=== PATIENT | female | born 1960 | race Caucasian/White ===

== ENCOUNTER → 2018-04-10 19:09 | Outpatient (CLI) | payer OTHER, SELFPAY | PROVIDERS: Family Provider Physician Assistant; PCP Physician Assistant; Visit Provider Physician Assistant | DX: B37.2 Candidiasis of skin and nail (principal) | CPT/HCPCS: 87070; 87075; 87077; 87147; 87186; 87205 ==

== ENCOUNTER → 2018-05-07 18:12 | Outpatient (REF) | payer OTHER, SELFPAY | LOC: LAB 18:12 | PROVIDERS: Family Provider Physician Assistant; PCP Physician Assistant; Visit Provider Physician Assistant | DX: D48.5 Neoplasm of uncertain behavior of skin (principal); L81.4 Other melanin hyperpigmentation; Z71.89 Other specified counseling; L08.9 Local infection of the skin and subcutaneous tissue, unspecified | CPT/HCPCS: 87070; 87075; 87077; 87147; 87186; 87205 ==

== ENCOUNTER → 2018-05-14 14:03 | Outpatient (CLI) | payer OTHER, SELFPAY ==
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
== END ==
PROVIDERS: Family Provider Physician Assistant; PCP Physician Assistant; Visit Provider Internal Medicine
DX: S21.002D Unspecified open wound of left breast, subsequent encounter (principal); S21.001D Unspecified open wound of right breast, subsequent encounter; B37.9 Candidiasis, unspecified
CPT/HCPCS: 11042; 87070; 87075; 87077; 87147; 87186; 87205; 99214

== ENCOUNTER → 2018-05-22 08:57 | Outpatient (CLI) | payer OTHER, SELFPAY ==
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
== END ==
PROVIDERS: Family Provider Physician Assistant; PCP Physician Assistant; Visit Provider Internal Medicine
DX: S21.002D Unspecified open wound of left breast, subsequent encounter (principal); S21.001D Unspecified open wound of right breast, subsequent encounter; B95.4 Other streptococcus as the cause of diseases classified elsewhere; A49.01 Methicillin susceptible Staphylococcus aureus infection, unspecified site; L92.9 Granulomatous disorder of the skin and subcutaneous tissue, unspecified
CPT/HCPCS: 17250

== ENCOUNTER → 2018-05-29 08:50 | Outpatient (CLI) | payer OTHER, SELFPAY | PROVIDERS: Family Provider Physician Assistant; PCP Physician Assistant; Visit Provider Internal Medicine | DX: T81.31XD Disruption of external operation (surgical) wound, not elsewhere classified, subsequent encounter (principal); S21.002D Unspecified open wound of left breast, subsequent encounter; S21.001D Unspecified open wound of right breast, subsequent encounter; B37.9 Candidiasis, unspecified; B95.7 Other staphylococcus as the cause of diseases classified elsewhere; B95.4 Other streptococcus as the cause of diseases classified elsewhere | CPT/HCPCS: 99214 ==

== ENCOUNTER → 2018-06-05 08:34 | Outpatient (CLI) | payer OTHER, SELFPAY | PROVIDERS: Family Provider Physician Assistant; PCP Physician Assistant; Visit Provider Internal Medicine | DX: S21.002D Unspecified open wound of left breast, subsequent encounter (principal); S21.001D Unspecified open wound of right breast, subsequent encounter; B37.9 Candidiasis, unspecified; L92.9 Granulomatous disorder of the skin and subcutaneous tissue, unspecified | CPT/HCPCS: 17250; 87070; 87075; 87077; 87147; 87186; 87205 ==

== ENCOUNTER → 2018-06-12 09:35 | Outpatient (CLI) | payer OTHER, SELFPAY ==
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
== END ==
PROVIDERS: Family Provider Physician Assistant; PCP Physician Assistant; Visit Provider Internal Medicine
DX: S21.002D Unspecified open wound of left breast, subsequent encounter (principal); S21.001D Unspecified open wound of right breast, subsequent encounter; L92.9 Granulomatous disorder of the skin and subcutaneous tissue, unspecified; R21 Rash and other nonspecific skin eruption
CPT/HCPCS: 17250

== ENCOUNTER → 2018-06-17 10:56 | Outpatient (CLI) | payer OTHER, SELFPAY ==
--- NOTE | 2018-06-17 13:24 | DIET.PN ---
Met for initial nutrition consult. Reports she has a lot of trouble w/yeast infections, though hasn't had a vaginal or oral yeast infection in a long time. Has poor healing wounds from breast reduction surgery with yeast infection on arms, shoulders, chest and abdomen. Tries to eat clean but having difficulty with this; craving sugar and bread. Feels her yeast infections clear best when avoiding these foods. Prefers vegan or mostly vegan style diet, though willing to eat seafood for omega 3s DX: osteopenia, poor healing wound, yeast infection ASSESSMENT: Pt appears somewhat distraught. Has a lot of nutrition beliefs - some accurate; some not. Appears to have impaired immunity; increased inflammation AEB chronic yeast and poor healing wounds. INTERVENTION: Provided education on immune building, anti-inflammatory diet; education on building up healthy GI microbiota. PLAN/GOAL: To avoid inflammatory foods: sat fat, trans fats, red meat (already does this), highly processed and refined foods, sugar. To eat ample anti-inflammatory foods: fruit (especially berries, melon), vegetables, legumes, healthful fats- nuts, seeds, fatty fish. Suggested vit D supplement Increase high calcium foods Keep a food record and f/u next week
== END ==
PROVIDERS: Family Provider Physician Assistant; PCP Physician Assistant; Visit Provider Physician Assistant
DX: M81.0 Age-related osteoporosis without current pathological fracture (principal); B37.9 Candidiasis, unspecified
CPT/HCPCS: 97802

== ENCOUNTER → 2018-06-18 11:29 | Outpatient (CLI) | payer OTHER, SELFPAY ==
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
== END ==
PROVIDERS: Family Provider Physician Assistant; PCP Physician Assistant; Visit Provider Internal Medicine
DX: S21.002A Unspecified open wound of left breast, initial encounter (principal); S21.001A Unspecified open wound of right breast, initial encounter; R21 Rash and other nonspecific skin eruption; L08.9 Local infection of the skin and subcutaneous tissue, unspecified
CPT/HCPCS: 11042; 87070; 87075; 87077; 87147; 87186; 87205

== ENCOUNTER → 2018-07-01 09:35 | Outpatient (CLI) | payer OTHER, SELFPAY ==
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
== END ==
PROVIDERS: PCP Physician Assistant; Visit Provider Internal Medicine
DX: Z48.817 Encounter for surgical aftercare following surgery on the skin and subcutaneous tissue (principal)
CPT/HCPCS: 99212

== ENCOUNTER 2018-07-22 09:45 | Outpatient (RCR) | payer OTHER, SELFPAY ==
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
--- NOTE | 2018-03-21 16:20 | PT.OPPOC ---
Current Diagnoses Pain in leg, unspecified (03/21/18) Provider Visit Care Team Role Provider Type Mavis Gould PA-C Family Provider Advanced Semi Driver Primary Care Provider Specialty: Family Practice Address: [address] [place] [address], [id number] Email: [email or web address] Deloris Valdez PA-C Attending Provider Advanced Semi Driver Specialty: Medical Address: [address] [place] [address], [id number] Email: [email or web address] Plan Of Care PT-OP-T Assessment and Plan Start: 03/21/18 07:23 Freq: Status: Active Protocol: Document 03/21/18 15:51 [facility] (Rec: 03/21/18 16:20 [facility] [email or web address]) Physical Therapy Assessment Rehab Potential Rehabilitation Potential Good Evaluation Complexity Number of Personal Factors/Comorbidities 3 or More Number of Body Systems Impaired 4 or More Clinical Presentation at Evaluation Stable Impairments Impairments Gait Pain Soft Tissue Mobility Strength Goals Three Impairment gait/foot positioning Ground Services Instructor Goal (LTG) Pt will have good walking mechanics with improved form & foot positioning to prevent discomfort. LTG Duration 05/22/18 Two Impairment rossi discomfort Ground Services Instructor Goal (LTG) No rossi discomfort with fast walking LTG Duration 05/22/18 One Impairment strength Short Term Goal (STG) Indep HEP STG Duration 04/21/18 Ground Services Instructor Goal (LTG) 5/5 LE strength B for improved gait LTG Duration 05/22/18 Assessment Summary Assessment Pt presents with ant tib tightening/cramping with fast walking. Pt has overall LE strength & hx of pelvic floor instability that may contribute to her rossi pain with fast walking. Further evaluation required to fully determine cause of cramping. Physical Therapy Plan Frequency and Duration Frequency of Treatment 1x/Week Duration of Treatment 2 months Plan of Care Start Date 03/21/18 Plan of Care End Date 05/22/18 Therapeutic Interventions Therapeutic Interventions Aquatic Therapy Balance Training Home Exercise Program Joint Mobilizations Manual Therapy Soft Tissue Mobilization Taping Therapeutic Exercises Modalities Cold Pack/Ice Massage Electric Stimulation Hot Packs Infrared Therapy Ultrasound Next Visit Focus/Plan Next Note Type Treatment Note Next Visit Plan Work on foot & tib fib mobility & foot stability exercises Plan of Care Dates Plan of Care Start Date 03/21/18 Plan of Care End Date 05/22/18 Please Sign and Return: I have reviewed this Plan of Care and certify that the skilled therapy services above are required to meet the patient?s needs. Physician Signature Date Printed Name and Credentials Clinical Instructor Signature Printed Name and Credentials
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
--- NOTE | 2018-05-15 10:29 | PT.OPPOC ---
Current Diagnoses Pain in leg, unspecified (05/15/18) Provider Visit Care Team Role Provider Type Mavis Gould PA-C Family Provider Advanced Asset Protection Associate Primary Care Provider Specialty: Family Practice Address: [address] [place] [address], [id number] Email: [email or web address] Deloris Valdez PA-C Attending Provider Advanced Asset Protection Associate Specialty: Medical Address: [address] [place] [address], [id number] Email: [email or web address] Plan Of Care PT-OP-T Assessment and Plan Start: 03/21/18 07:23 Freq: Status: Active Protocol: Document 05/15/18 10:22 [facility] (Rec: 05/15/18 10:27 [facility] [email or web address]) Physical Therapy Assessment Goals Three Impairment gait/foot positioning Half-Way Goal (LTG) Pt will have good walking mechanics with improved form & foot positioning to prevent discomfort. LTG Duration 07/15/18 Two Impairment rossi discomfort Half-Way Goal (LTG) No rossi discomfort with fast walking LTG Duration 07/15/18 One Impairment strength Short Term Goal (STG) Indep HEP STG Duration 06/15/18-progressing Solvent Plant Operator Goal (LTG) 5/5 LE strength B for improved gait LTG Duration 07/15/18 Assessment Summary Assessment Pt is understanding new exercises, but has not made significant process at this time d/t dec availability of pt d/t other medical and personal appts. Improving soft tissue mobility of ant rossi. Physical Therapy Plan Frequency and Duration Frequency of Treatment 1x/Week Duration of Treatment 2 months Plan of Care Start Date 05/15/18 Plan of Care End Date 07/15/18 Therapeutic Interventions Therapeutic Interventions Aquatic Therapy Balance Training Home Exercise Program Joint Mobilizations Manual Therapy Soft Tissue Mobilization Taping Therapeutic Exercises Modalities Cold Pack/Ice Massage Electric Stimulation Hot Packs Infrared Therapy Ultrasound Next Visit Focus/Plan Next Note Type Progress Note Next Visit Plan Work on foot & tib fib mobility & foot stability exercises; cuneiform, talar & calcaneal mobs; glute & core strength Plan of Care Dates Plan of Care Start Date 05/15/18 Plan of Care End Date 07/15/18 Please Sign and Return: I have reviewed this Plan of Care and certify that the skilled therapy services above are required to meet the patient?s needs. Physician Signature Date Printed Name and Credentials Clinical Instructor Signature Printed Name and Credentials
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
--- NOTE | 2018-07-09 09:37 | PT.OPPOC ---
Current Diagnoses Pain in leg, unspecified (07/09/18) Provider Visit Care Team Role Provider Type Mavis Gould PA-C Family Provider Advanced Process Chemist Primary Care Provider Specialty: Family Practice Address: [address] [place] [address], [id number] Email: [email or web address] Deloris Valdez PA-C Attending Provider Advanced Process Chemist Specialty: Medical Address: [address] [place] [address], [id number] Email: [email or web address] Plan Of Care PT-OP-T Assessment and Plan Start: 03/21/18 07:23 Freq: Status: Active Protocol: Document 07/09/18 08:17 [facility] (Rec: 07/09/18 09:37 [facility] [id number]) Physical Therapy Assessment Goals Three Impairment gait/foot positioning Geology Teacher Goal (LTG) Pt will have good walking mechanics with improved form & foot positioning to prevent discomfort. LTG Duration 09/14/18-improving w/ dec foot slap Two Impairment rossi discomfort Geology Teacher Goal (LTG) No rossi discomfort with fast walking LTG Duration 09/14/18 One Impairment strength Short Term Goal (STG) Indep HEP STG Duration 06/15/18-progressing HEP as needed-indep w/current Residential Goal (LTG) 5/5 LE strength B for improved gait LTG Duration 09/14/18-improving Assessment Summary Assessment Pt reports she has improved in her ability to sleep without pain into her shins and is improving with overall LE strength. She is improving in foot position and comfort in a standing position & different sitting positions and is becoming more aware of her body mechanics. Pt cont to have difficulty with gait with noted trendelenburg gait on R side created inc supination in stance for her and likely inc pain into ant rossi. Physical Therapy Plan Frequency and Duration Frequency of Treatment 1x/Week Duration of Treatment 2 months Plan of Care Start Date 07/09/18 Plan of Care End Date 09/08/18 Therapeutic Interventions Therapeutic Interventions Aquatic Therapy Balance Training Gait Training Home Exercise Program Joint Mobilizations Manual Therapy Neuromuscular Re-education Orthotic/Prosthetic Management Soft Tissue Mobilization Taping Therapeutic Exercises Modalities Cold Pack/Ice Massage Electric Stimulation Hot Packs Infrared Therapy Iontophoresis Ultrasound Next Visit Focus/Plan Next Note Type Treatment Note Next Visit Plan Cont to work on gait mechanics ; assess L hip position & mobility; cont to work on PNF to try ot achieve good gait mechanics Plan of Care Dates Plan of Care Start Date 07/09/18 Plan of Care End Date 09/08/18 Please Sign and Return: I have reviewed this Plan of Care and certify that the skilled therapy services above are required to meet the patient?s needs. Physician Signature Date Printed Name and Credentials Clinical Instructor Signature Printed Name and Credentials
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
== END 2018-09-10 09:41 ==
LOC: PHYS 09:45
PROVIDERS: Family Provider Physician Assistant; PCP Physician Assistant; Visit Provider Physician Assistant
DX: M79.606 Pain in leg, unspecified (principal)
CPT/HCPCS: 97110; 97112; 97116; 97140; 97161; 97530

== ENCOUNTER → 2018-09-29 13:29 | Outpatient (CLI) | payer SELFPAY | DX: M19.90 Unspecified osteoarthritis, unspecified site (principal); L30.9 Dermatitis, unspecified; R53.83 Other fatigue; E61.9 Deficiency of nutrient element, unspecified; E63.9 Nutritional deficiency, unspecified; F41.9 Anxiety disorder, unspecified; G47.9 Sleep disorder, unspecified | CPT/HCPCS: 36415; 99001 ==

== ENCOUNTER → 2020-02-12 11:16 | Outpatient (CLI) | payer OTHER, SELFPAY ==
[2020-02-12 12:32] LABS: Add Manual Diff / Slide Review NO; Basophils Absolute Auto 0 /uL (0-100); Basophils Percent Auto 0.8 % (0-2); Eosinophils Absolute Auto 100 /uL (0-450); Eosinophils Percent Auto 1.5 % (2-4); Hematocrit 38.8 % (36-46); Hemoglobin 13.2 g/dL (12.0-16.0); Lymphocytes Absolute Auto 900 /uL (1100-4500); Lymphocytes Percent Auto 26.2 % (25-40); Mean Corpuscular HGB Conc 34.1 % (30-36); Mean Corpuscular Hemoglobin 32.1 PG (26-34); Mean Corpuscular Volume 94.1 fL (80-100); Monocytes Absolute Auto 300 /uL (0-900); Monocytes Percent Auto 10.5 % (3-14); Neutrophils Absolute Auto 2000 /uL (1500-7000); Platelet Count 176 X10^3/uL (150-400); Red Blood Cell Count 4.13 X10^6/uL (4.0-5.2); Red Cell Distribution Width 13.6 % (11.6-14.8); White Blood Cell Count 3.3 X10^3/uL (4.5-11.0)
[2020-02-12 12:50] LABS: Alanine Aminotransferase 18 IU/L (<35); Albumin 4.4 g/dL (3.5-5.0); Albumin Globulin Ratio 1.7 (1.0-2.8); Alkaline Phosphatase 79 U/L (38-126); Aspartate Aminotransferase 29 IU/L (14-36); BUN Creatinine Ratio 13.1 (6-22); Bilirubin Total 0.6 mg/dL (0.2-1.3); Blood Urea Nitrogen 8 mg/dL (7-17); Calcium 9.7 mg/dL (8.4-10.2); Carbon Dioxide 22 mmol/L (22-32); Chloride 98 mmol/L (98-107); Estimated Glomerular Filt Rate > 60.0 mL/min (>60); Globulin 2.6 g/dL (1.7-4.1); Glucose 61 mg/dL (70-100); HEMOLYSIS < 15 (0-50); Sodium 137 mmol/L (137-145)
== END ==
PROVIDERS: PCP Nurse Practitioner Family; Referring Provider Family Medicine; Visit Provider Family Medicine
DX: B37.2 Candidiasis of skin and nail (principal); L30.9 Dermatitis, unspecified
CPT/HCPCS: 36415; 80053; 85025; 87040

== ENCOUNTER → 2020-03-30 17:28 | Outpatient (CLI) | payer OTHER, SELFPAY ==
--- NOTE | 2020-03-30 17:30 | DI.MG.S_ITS ---
BILATERAL DIGITAL SCREENING MAMMOGRAM 3D/2D WITH CAD: 03/30/2020 CLINICAL: Routine screening. Comparison is made to exams dated: 07/01/2017 mammogram, 08/24/2011 mammogram - [facility], and 04/10/2007 mammogram - [facility]. There are scattered fibroglandular elements in both breasts. Current study was also evaluated with a Computer Aided Detection (CAD) system. There are benign post operative findings in both breasts. No significant masses, calcifications, or other findings are seen in either breast. IMPRESSION: There is no mammographic evidence of malignancy. A 1 year screening mammogram is recommended. This exam was interpreted at Station ID: [id number]. NOTE: For mammograms, a report in lay terms will be sent to the patient. Approximately 15% of breast malignancies will not be visualized mammographically. In the management of a palpable breast mass, a negative mammogram must not discourage biopsy of a clinically suspicious lesion. Electronically Signed By: Shashi duggan/ila:03/31/2020 08:10:26 letter sent: Normal Exam ACR BI-RADS Category 2: Benign Finding(s) 3342F
== END ==
PROVIDERS: PCP Nurse Practitioner Family; Referring Provider Nurse Practitioner Family; Visit Provider Nurse Practitioner Family
DX: Z12.31 Encounter for screening mammogram for malignant neoplasm of breast (principal)
CPT/HCPCS: 77063; 77067

== ENCOUNTER → 2020-07-02 13:18 | Outpatient (ROUT) | payer OTHER, SELFPAY ==
[2020-07-04 06:01] LABS: COVID19 Sendout Not Detected (Not Detect)
== END ==
PROVIDERS: PCP Family Medicine; Visit Provider Physician Assistant
DX: Z11.59 Encounter for screening for other viral diseases (principal)
CPT/HCPCS: 87635

== ENCOUNTER 2020-10-28 19:11 | Emergency (ER) | payer OTHER, SELFPAY ==
[2020-10-28 19:15] VITALS: BP 151/74; PULSE 84; RESP 18; TEMP 36.5; O2SAT 100; BMI 22.6
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
--- NOTE | 2020-10-28 20:33 | PC.NURSE ---
test entered in error.
== END 2020-10-28 20:30 | disposition home or self-care (01) ==
PROVIDERS: Emergency Provider Emergency Medicine; PCP Family Medicine
DX: R21 Rash and other nonspecific skin eruption (principal)
CPT/HCPCS: 99281

== ENCOUNTER → 2020-11-10 13:40 | Outpatient (CLI) | payer OTHER, SELFPAY | PROVIDERS: PCP Family Medicine; Referring Provider Registered Nurse; Visit Provider Registered Nurse | DX: M81.0 Age-related osteoporosis without current pathological fracture (principal); Z78.0 Asymptomatic menopausal state; Z82.62 Family history of osteoporosis | CPT/HCPCS: 77080 ==

== ENCOUNTER → 2024-04-09 08:50 | Outpatient (CLI) | payer OTHER, SELFPAY ==
--- NOTE | 2024-04-09 08:51 | DI.US.S_ITS ---
LIMITED ULTRASOUND OF LEFT BREAST: 04/09/2024 CLINICAL: Intermittent pain in left breast. Comparison is made to exam dated: 04/09/2024 mammogram - [facility]. Color flow and real-time ultrasound of the left breast lower inner quadrant were performed. No sonographic abnormality is seen in the area of clinical concern in the left breast lower inner quadrant. [employer] Specialist images were taken at 6, 7, 8, and 9 o'clock, 3 cm from the nipple. IMPRESSION: NEGATIVE No sonographic abnormality in the areas of clinical concern. No mammographic or sonographic evidence of malignancy. A 1 year screening mammogram is recommended. Findings and recommendations were conveyed to the patient during today's evaluation. This exam was interpreted at Station ID: [id number]. Electronically Signed By: Radha Mcclelland M.D., Ph.D. eb/:04/09/2024 11:40:57 letter sent: Clinical Evaluation Ultrasound BI-RADS: 1 Negative
--- NOTE | 2024-04-09 08:51 | DI.MG.S_ITS ---
BILATERAL DIGITAL DIAGNOSTIC MAMMOGRAM 3D/2D: 04/09/2024 CLINICAL: Left breast pain. Comparison is made to exams dated: 02/25/2023 mammogram - Outside facility, 03/30/2020 mammogram - [facility], and 02/16/2022 mammogram - Outside facility. There are scattered areas of fibroglandular density in both breasts (category b / 25%-50% glandular tissue). A BB marker was placed in the areas of clinical concern in the left breast, and no mammographic abnormality is identified. No significant masses, calcifications, or other findings are seen in either breast. IMPRESSION: INCOMPLETE: NEEDS ADDITIONAL IMAGING EVALUATION No mammographic abnormality in the areas of clinical concern. Recommend further evaluation with targeted breast ultrasound, which will immediately follow this exam. Based on the Tyrer Cuzick model (a risk assessment model) the patient's lifetime risk is 7.1% and her 10 year risk is 3.2%. According to the ACR, ACS, and NCCN guidelines, an annual breast MRI exam along with mammogram is recommended if the patient's lifetime risk is 20% or greater. This exam was interpreted at Station ID: [id number]. NOTE: For mammograms, a report in lay terms will be sent to the patient. Approximately 15% of breast malignancies will not be visualized mammographically. In the management of a palpable breast mass, a negative mammogram must not discourage biopsy of a clinically suspicious lesion. Electronically Signed By: Radha Mcclelland M.D., Ph.D. eb/:04/09/2024 11:38:29 ACR BI-RADS Category 0: Incomplete 3340F
[2024-04-09 11:12] LABS: Add Manual Diff / Slide Review NO; Basophils Absolute Auto 0 /uL (0-100); Basophils Percent Auto 0.6 % (0-2); Eosinophils Absolute Auto 100 /uL (0-450); Eosinophils Percent Auto 2.1 % (2-4); Hematocrit 40.9 % (36-46); Lymphocytes Absolute Auto 1000 /uL (1100-4500); Lymphocytes Percent Auto 25.9 % (25-40); Mean Corpuscular HGB Conc 34.2 % (30-36); Mean Corpuscular Volume 93.7 fL (80-100); Monocytes Absolute Auto 400 /uL (0-900); Monocytes Percent Auto 10.6 % (3-14); Neutrophils Absolute Auto 2300 /uL (1500-7000); Neutrophils Percent Auto 60.8 % (50-75); Platelet Count 200 X10^3/uL (150-400); Red Blood Cell Count 4.36 X10^6/uL (4.0-5.2); Red Cell Distribution Width 12.4 % (11.6-14.8); White Blood Cell Count 3.8 X10^3/uL (4.5-11.0)
[2024-04-09 11:43] LABS: Alanine Aminotransferase 21 IU/L (<35); Albumin 3.9 g/dL (3.5-5.0); Albumin Globulin Ratio 1.4 (1.0-2.8); Alkaline Phosphatase 66 U/L (38-126); Aspartate Aminotransferase 25 IU/L (14-36); Bilirubin Total 0.4 mg/dL (0.2-1.3); Blood Urea Nitrogen 14 mg/dL (7-17); Calcium 9.4 mg/dL (8.4-10.2); Carbon Dioxide 30 mmol/L (22-32); Chloride 107 mmol/L (98-107); Estimated Glomerular Filt Rate > 60 mL/min (>60); Globulin 2.7 g/dL (1.7-4.1); Glucose 98 mg/dL (80-110); HEMOLYSIS < 15 (0-50); Potassium 5.1 mmol/L (3.4-5.1); Sodium 140 mmol/L (137-145); Total Protein 6.6 g/dL (6.3-8.2)
== END ==
PROVIDERS: PCP Family Medicine; Referring Provider Family Medicine; Visit Provider Family Medicine
DX: Z00.00 Encounter for general adult medical examination without abnormal findings (principal); R92.2 Inconclusive mammogram; N64.4 Mastodynia; R92.323 Mammographic fibroglandular density, bilateral breasts
CPT/HCPCS: 36415; 76642; 77066; 80053; 85025; G0279

== ENCOUNTER 2024-07-06 12:38 | Day surgery (SDC) | payer OTHER, SELFPAY ==
[2024-07-02 14:11] VITALS: BMI 20.9
--- NOTE | 2024-07-06 | PATH_ITS ---
[facility] Accession Number: [id number] No. of containers..02 Tissue . 01 Material submitted: . PART A: vagina - 7 O'CLOCK VAGINAL PART B: vagina - 5 O'CLOCK VAGINAL . 01 Diagnosis: A. VAGINAL, 7 O'CLOCK, BIOPSY: Lichen sclerosus. No dysplasia or malignancy. . B. VAGINAL, 5 O'CLOCK, BIOPSY: Lichen sclerosus. No dysplasia or malignancy. [facility] 07/10/2024 1234 Local . 01 Comment: This case has also been reviewed by Dr. Nely Morales, dermatopathologist who concurs with the diagnosis. . 01 Electronically signed: . Ebony Morocho MD, Pathologist NPI- [id number] . 01 Gross description: . A. Received in formalin with two patient identifiers and 7 o'clock vaginal biopsy, are two luciano to brown tissue fragments measuring 0.4 to 0.5 cm in greatest dimension, submitted in A1. B. Received in formalin with two patient identifiers and 5 o'clock vaginal biopsy, is a single luciano soft tissue fragment, 0.7 cm in greatest dimension, submitted in B1. ([id number]) /MRV 07/07/2024 1511 Local . 01 Pathologist provided ICD-10: L90.0 . 01 CPT . 044220, 622222 Specimen Comment: A courtesy copy of this report has been sent to [facility] Performed at: [address] [id number] MD Brian Boo MD Phone: [phone]
[2024-07-06 13:00] VITALS: BP 120/72; PULSE 88; RESP 12; TEMP 36.1; O2SAT 97; BMI 20.9
[2024-07-06] MEDS: LACTATED RINGERS 1,000 ML 42 ML IV (13:14)
[2024-07-06] MEDS: ACETAMINOPHEN 325 MG TABLET 975 MG PO (13:20)
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
--- NOTE | 2024-07-06 13:43 | PM.PREOP ---
Pre-operative Note Interval Note History & Physical reviewed/Exam performed by Physician: Yes Changes to H&P: No H&P completed within 30 days and has changed as indicated here:: 07/06/24 ASA Class (for procedural sedation): II
--- NOTE | 2024-07-06 14:00 | SUR.OPER ---
Lithotomy on padded OR bed, head on pillow, arms secured on padded arm boards at <90 degrees abduction. Legs secured in padded yellow fins stirrups.
--- NOTE | 2024-07-06 14:15 | PM.OP.1 ---
Operative Date/Time/Diagnoses Date of procedure: 07/06/24 Time of procedure: 14:15 Pre-op diagnosis: abnormal vaginal exam Post-op diagnosis: same Procedure & Clinicians Procedure: exam under anesthesia, hysteroscopy, vaginal biopsy Same procedure as scheduled: Yes Indications: abnormal vaginal exam concern for postmenopausal bleeding Surgeon: Jillian Levy Click Yes if Unassisted: No Anesthesia Type: General Operative Notes Findings: diffuse lichen sclerosus with obliteration of clitoris, clitoral brito, bilateal labia minora galina rectal prolapse, anterior and posterior POP stage 3 normal appearing cervix atrophic, lichenous changes of bilateral labia, areas of violaceous change at 5 and 7 o'clock Closure Type: not applicable Specimen(s): other (vaginal biopsy, 5 and 7 o'clock ) Estimated Blood Loss (mL): 5 Procedure in detail: Pt was taken to the operating room, transferred to OR table and anesthesia was induced with placement of LMA.? Pt had her legs placed in Mukesh stirrups and an exam under anesthesia was performed. The patient was prepped and draped in a sterile fashion.? A time out was performed.? A sterile speculum was inserted into the vagina.? The cervix was visualized and grasped anteriorly using a single tooth tenaculum. The cervix was serially dilated with flores dilators to 17f to allow for passage of hysteroscope. The 5mm 0 degree hysteroscope was introduced and endometrial cavity was visualized, very atrophic in appearance without appreciable abnormality or thickened endometrium, bilateral ostia visualized. Hysteroscope removed. Tenaculum removed from cervix with noted hemostasis at insertion sites; speculum removed and attention turned to vaginal biopsy. Areas of biopsy at 5 and 7 o'clock immediately distal to hymenal remnant identified. 6mm punch biopsy performed at each site, specimen undermined sharply with #11 blade. Silver nitrate applied to sites with subsequently noted hemostasis. ?The patient then had her legs taken out of stirrups.? The patient tolerated the procedure well and without difficulty.? The patient was awakened from anesthesia and taken to PACU in stable condition. Complications: none Post-operative Condition: stable Disposition: PACU Plan for aftercare: home with routine outpatient postoperative f/u as scheduled
[2024-07-06 14:21] VITALS: BP 129/73; PULSE 95; RESP 13; TEMP 36.5; O2SAT 98
[2024-07-06 14:26] VITALS: BP 123/67; PULSE 87; RESP 16; O2SAT 97
[2024-07-06 14:32] VITALS: BP 118/75; PULSE 85; RESP 14; O2SAT 99
[2024-07-06 14:37] VITALS: BP 125/75; PULSE 78; RESP 13; O2SAT 95
[2024-07-06 14:55] VITALS: BP 136/49; PULSE 69; RESP 19; TEMP 36.6; O2SAT 97
[2024-07-06] MEDS: OXYCODONE IR 5 MG TABLET PO (15:03)
== END 2024-07-06 15:35 | disposition home or self-care (01) ==
PROVIDERS: PCP Family Medicine; Referring Provider Obstetrics & Gynecology; Visit Provider Obstetrics & Gynecology
PROC: 0UDB8ZZ Extraction of Endometrium, Via Natural or Artificial Opening Endoscopic (ICD-10-PCS; CPT 58558; principal; 2024-07-06 13:45)
DX: N90.4 Leukoplakia of vulva (principal); K62.3 Rectal prolapse; N81.89 Other female genital prolapse
CPT/HCPCS: 58555; 57100; J2250; J3010

== ENCOUNTER 2024-08-05 03:45 | Emergency (ER) | payer OTHER, SELFPAY ==
[2024-08-05 03:55] VITALS: BP 140/78; PULSE 82; RESP 14; TEMP 36.8; O2SAT 98; BMI 20.9
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
--- NOTE | 2024-08-05 04:01 | PC.NURSE ---
Pt unable to complete visual acuity due to brightness of lights. Pt wearing blackout shades. History of dry eyes, no history of glaucoma.
[2024-08-05] MEDS: FLUORESCEIN 1 MG STRIP EYE-BOTH (04:19)
[2024-08-05] MEDS: PROPARACAINE 0.5% OPHTH SOL 1 DROPS EYE-BOTH (04:19)
[2024-08-05] MEDS: ERYTHROMYCIN OPHTH 1 GM OINT 1 APPLIC EYE-BOTH (04:21)
== END 2024-08-05 04:36 | disposition home or self-care (01) ==
PROVIDERS: Emergency Provider Emergency Medicine; PCP Family Medicine
DX: S05.02XA Injury of conjunctiva and corneal abrasion without foreign body, left eye, initial encounter (principal); H10.9 Unspecified conjunctivitis
CPT/HCPCS: 99282

== ENCOUNTER → 2025-05-31 15:47 | Outpatient (CLI) | payer OTHER, SELFPAY ==
--- NOTE | 2025-05-31 15:47 | DI.US.S_ITS ---
PROCEDURE: US PERIPH VENOUS LOW EXTREM LT INDICATIONS: swelling,pain TECHNIQUE: Real-time imaging, as well as color and pulse Doppler interrogation, were performed of the lower extremity deep veins from the inguinal ligament to the popliteal fossa, with documentation of the visualized calf veins. COMPARISON: None. FINDINGS: The common femoral, femoral, popliteal, and the visualized calf veins are normally compressible, and free of intraluminal thrombus. Color and pulse Doppler demonstrate normal phasic intraluminal flow. There is normal augmentation response to distal compression maneuver. IMPRESSION: No findings of lower extremity deep venous thrombosis. Dictated by: Kristian Abad M.D. on 05/31/2025 at 16:34 Approved by: Kristian Abad M.D. on 05/31/2025 at 16:34
== END ==
LOC: US 15:47
PROVIDERS: PCP Family Medicine; Referring Provider Family Medicine; Visit Provider Family Medicine
DX: R60.0 Localized edema (principal)
CPT/HCPCS: 93971

== ENCOUNTER → 2025-07-08 09:19 | Outpatient (CLI) | payer OTHER, SELFPAY | PROVIDERS: Family Provider Family Medicine; PCP Family Medicine; Referring Provider Family Medicine; Visit Provider Surgery | DX: L20.9 Atopic dermatitis, unspecified (principal) | CPT/HCPCS: 99203; 99212 ==